=== PATIENT | female | born 1940 | race African-American/Black ===

== ENCOUNTER 2019-05-02 03:50 | Inpatient (IN) | payer MEDICARE, BC ==
[2019-05-02] VITALS (26 sets, daily range): BP systolic 62–152; BP diastolic 40–84
[~2019-05-02] VITALS: Ht 167.6 cm; Wt 59.9 kg
[~2019-05-02 03:50] MED LIST: CARV3.1242 PO
[2019-05-02] MEDS ORDERED: ETOMIDATE 2MG/ML 10ML VIAL IV ONE (03:53)
[2019-05-02] MEDS ORDERED: SUCCINYLCHOLINE CHLORIDE 200MG/10ML IV ONE (03:53)
[2019-05-02] MEDS ORDERED: SODIUM CHLORIDE 0.9% 1,000 ML IV ONE ×2 (03:59→05:00)
[2019-05-02] MEDS ORDERED: ONDANSETRON HCL 4MG/2ML INJ IV STA (03:59)
[2019-05-02] MEDS ORDERED: LORAZEPAM 2MG/ML CPJ IV ONE (04:00)
[2019-05-02] MEDS ORDERED: FENTANYL CITRATE/PF 500 MCG in SODIUM CHLORIDE 0.9% 40 ML IV PRN ×2 (04:00→10:00)
[2019-05-02] MEDS ORDERED: MIDAZOLAM HCL 50 MG in DEXTROSE 5% WATER 40 ML IV ONE (04:00)
[2019-05-02] MEDS ORDERED: MIDAZOLAM HCL 50 MG in DEXTROSE 5% WATER 40 ML IV SCH (04:30)
[2019-05-02 04:32] LABS: BG BASE EXCESS -0.9 mmol/L (-2.0-2.0); BG CARBOXYHEMOGLOBIN 0.3 % (0.5-1.5); BG DEOXYHEMOGLOBIN 2.1 % (0.0-5.0); BG FRACTION INSPIRED OXYGEN 100; BG HCO3 ACT 21.2 mmol/L (22.0-26.0); BG METHEMOGLOBIN 0.2 % (0.0-1.5); BG OXYGEN SATURATION 97.9 % (92.0-98.5); BG OXYHEMOGLOBIN 97.4 % (94.0-97.0); BG PCO2 27.8 mmHg (35.0-45.0); BG PH 7.501 (7.350-7.450); BG PO2 106.9 mmHg (75.0-100.0); BG SAMPLE SITE RIGHT RADIAL; BG TIDAL VOLUME(mL) 550 mL; BG TOTAL HEMOGLOBIN 11.5 g/dL (12.0-18.0); BG VENT MODE VENT - A/C; BG VENT RATE 14 set
[2019-05-02 04:35] LABS: CHLORIDE 118 mEq/L (98-107)
[2019-05-02 04:41] LABS: BASOPHILS % 0.2 % (0.0-2.0); EOSINOPHILS % 0.1 % (0.0-5.0); HEMATOCRIT. 36.2 % (36.0-48.0); HEMOGLOBIN. 11.6 g/dL (12.0-16.0); LYMPHOCYTES % 12.5 % (20.0-50.0); MEAN CORPUSCULAR HEMOGLOBIN 31.3 pg (28.0-32.0); MEAN CORPUSCULAR VOLUME 97.8 fL (81.0-99.0); MEAN PLATELET VOLUME 9.4 fl (7.4-10.4); MONOCYTES % 4.1 % (2.0-8.0); NEUTROPHILS % 83.1 % (40.0-76.0); PLATELET 351 x1000/uL (130-400)
[2019-05-02 04:44] LABS: INR 1.1; PROTHROMBIN TIME 12.4 sec (9.6-11.0)
[2019-05-02] MEDS ORDERED: CEFEPIME 1,000 MG in DEXTROSE 5% WATER 50 ML IV ONE (04:45)
[2019-05-02] MEDS ORDERED: VANCOMYCIN 1 G PREMIX 200 ML IV SCH (04:45)
[2019-05-02] MEDS ORDERED: SODIUM CHLORIDE 0.9% 100 ML IV ONE (05:00)
[2019-05-02 05:29] LABS: CLARITY URINE TURBID (CLEAR); COLOR URINE DARK YELLOW (YELLOW); KETONES URINE NEGATIVE (NEGATIVE); LEUKOCYTE ESTERASE URINE 3+ (NEGATIVE); NITRITE URINE POSITIVE (NEGATIVE); OCCULT BLOOD URINE 2+ (NEGATIVE); PH URINE 5.5 (4.5-8.0); PROTEIN URINE 3+ (NEGATIVE); SPECIFIC GRAVITY URINE 1.015 (1.005-1.030)
[2019-05-02] MEDS: FENTANYL CITRATE/PF 500 MCG in SODIUM CHLORIDE 0.9% 40 ML IV PRN ×2 (05:56→17:55)
[2019-05-02] MEDS ORDERED: ACETAMINOPHEN 650MG/20.3ML UDC ONE (06:51)
[2019-05-02 09:01] LABS: BASOPHILS % 0.2 % (0.0-2.0); EOSINOPHILS % 0.1 % (0.0-5.0); HEMATOCRIT. 26.9 % (36.0-48.0); HEMOGLOBIN. 8.6 g/dL (12.0-16.0); LYMPHOCYTES % 8.9 % (20.0-50.0); MEAN CORPUSCULAR HEMOGLOBIN 31.2 pg (28.0-32.0); MEAN CORPUSCULAR VOLUME 97.4 fL (81.0-99.0); MEAN PLATELET VOLUME 9.2 fl (7.4-10.4); MONOCYTES % 4.4 % (2.0-8.0); NEUTROPHILS % 86.4 % (40.0-76.0); PLATELET 228 x1000/uL (130-400); RED BLOOD CELL COUNT 2.77 mill/uL (4.2-5.4); RED CELL DISTRIBUTION WIDTH 16.8 % (11.6-14.6)
[2019-05-02 09:12] LABS: CHLORIDE 125 mEq/L (98-107)
[2019-05-02] MEDS ORDERED: MIDAZOLAM HCL 50 MG in DEXTROSE 5% WATER 40 ML IV PRN (10:00)
[2019-05-02] MEDS ORDERED: NOREPINEPHRINE 4 MG in DEXT 5% WATER 246 ML IV PRN ×2 (11:00→16:30)
[2019-05-02] MEDS ORDERED: PHENYLEPHRINE 10 MG in DEXT 5% WATER 249 ML IV PRN ×2 (11:00→16:30)
[2019-05-02] MEDS ORDERED: NOREPINEPHRINE 4MG/250ML PMX 250 ML IV PRN (11:15)
[2019-05-02] MEDS ORDERED: MEROPENEM 500 MG in SODIUM CHLORIDE 0.9% 50 ML IV SCH ×2 (11:30→18:00)
[2019-05-02] MEDS: IPRATROPIUM/ALBUTEROL 0.5-3(2.5)MG/3ML NEB HHN PRN ×2 (11:47→16:19)
[2019-05-02] MEDS ORDERED: ACETAMINOPHEN 325MG TABLET NG PRN (12:15)
[2019-05-02] MEDS ORDERED: POTASSIUM CHLORIDE 20MEQ/PACKET PO NR (17:45)
[2019-05-02] MEDS: MEROPENEM 500 MG in SODIUM CHLORIDE 0.9% 50 ML IV SCH (17:53)
[2019-05-02] MEDS: PANTOPRAZOLE SODIUM 40 MG/VIAL IV SCH (17:53)
[2019-05-02] MEDS: POTASSIUM CHLORIDE INJ 10 MEQ in DEXT 5%/0.2% NACL 1,000 ML IV SCH (19:26)
[2019-05-02] MEDS: IPRATROPIUM/ALBUTEROL 0.5-3(2.5)MG/3ML NEB HHN SCH (20:16)
[2019-05-02] MEDS: VANCOMYCIN 1 G PREMIX 200 ML IV SCH (23:13)
[2019-05-03] VITALS (97 sets, daily range): BP systolic 77–152; BP diastolic 32–75
[2019-05-03] MEDS: NOREPINEPHRINE 8 MG in DEXT 5% WATER 242 ML IV PRN ×3 (00:09→20:52)
[2019-05-03] MEDS: IPRATROPIUM/ALBUTEROL 0.5-3(2.5)MG/3ML NEB HHN SCH ×6 (00:11→21:25)
[2019-05-03] MEDS: MEROPENEM 500 MG in SODIUM CHLORIDE 0.9% 50 ML IV SCH ×3 (01:07→17:40)
[2019-05-03] MEDS: MIDAZOLAM HCL 50 MG in DEXTROSE 5% WATER 40 ML IV PRN (05:01)
[2019-05-03] MEDS: POTASSIUM CHLORIDE INJ 10 MEQ in DEXT 5%/0.2% NACL 1,000 ML IV SCH ×2 (05:01→15:20)
[2019-05-03 05:05] LABS: CHLORIDE 117 mEq/L (98-107)
[2019-05-03 06:53] LABS: BASOPHILS % 0.2 % (0.0-2.0); EOSINOPHILS % 1.7 % (0.0-5.0); HEMATOCRIT. 27.5 % (36.0-48.0); HEMOGLOBIN. 8.5 g/dL (12.0-16.0); LYMPHOCYTES % 13.5 % (20.0-50.0); MEAN CORPUSCULAR HEMOGLOBIN 30.7 pg (28.0-32.0); MEAN CORPUSCULAR VOLUME 98.6 fL (81.0-99.0); MEAN PLATELET VOLUME 10.1 fl (7.4-10.4); MONOCYTES % 4.3 % (2.0-8.0); NEUTROPHILS % 80.3 % (40.0-76.0); PLATELET 234 x1000/uL (130-400); RED BLOOD CELL COUNT 2.79 mill/uL (4.2-5.4); RED CELL DISTRIBUTION WIDTH 16.6 % (11.6-14.6)
[2019-05-03 08:34] LABS: BG BASE EXCESS 0.1 mmol/L (-2.0-2.0); BG CARBOXYHEMOGLOBIN 0.3 % (0.5-1.5); BG DEOXYHEMOGLOBIN 0.5 % (0.0-5.0); BG FRACTION INSPIRED OXYGEN 70; BG METHEMOGLOBIN 0.2 % (0.0-1.5); BG OXYGEN SATURATION 99.5 % (92.0-98.5); BG PCO2 35.7 mmHg (35.0-45.0); BG PH 7.445 (7.350-7.450); BG PO2 252.4 mmHg (75.0-100.0); BG SAMPLE SITE RIGHT RADIAL; BG TIDAL VOLUME(mL) 500 mL; BG TOTAL HEMOGLOBIN 9.6 g/dL (12.0-18.0); BG VENT MODE VENT - A/C; BG VENT RATE 12 set
[2019-05-03] MEDS: PANTOPRAZOLE SODIUM 40 MG/VIAL IV SCH (08:50)
[2019-05-03] MEDS: FENTANYL CITRATE/PF 500 MCG in SODIUM CHLORIDE 0.9% 40 ML IV PRN (15:18)
[2019-05-03] MEDS ORDERED: AMIKACIN SULFATE 500 MG in SODIUM CHLORIDE 0.9% 100 ML IV NR (17:30)
[2019-05-03] MEDS: VANCOMYCIN 1 G PREMIX 200 ML IV SCH (18:18)
[2019-05-04] VITALS (82 sets, daily range): BP systolic 75–171; BP diastolic 41–99
[2019-05-04] MEDS: IPRATROPIUM/ALBUTEROL 0.5-3(2.5)MG/3ML NEB HHN SCH ×6 (00:15→20:04)
[2019-05-04] MEDS: POTASSIUM CHLORIDE INJ 10 MEQ in DEXT 5%/0.2% NACL 1,000 ML IV SCH ×4 (00:47→22:00)
[2019-05-04] MEDS: MEROPENEM 500 MG in SODIUM CHLORIDE 0.9% 50 ML IV SCH ×3 (01:41→18:37)
[2019-05-04 05:39] LABS: BASOPHILS % 0.3 % (0.0-2.0); EOSINOPHILS % 3.3 % (0.0-5.0); HEMATOCRIT. 26.9 % (36.0-48.0); HEMOGLOBIN. 8.6 g/dL (12.0-16.0); LYMPHOCYTES % 13.9 % (20.0-50.0); MEAN CORPUSCULAR HEMOGLOBIN 31.6 pg (28.0-32.0); MEAN CORPUSCULAR VOLUME 98.6 fL (81.0-99.0); MEAN PLATELET VOLUME 10.4 fl (7.4-10.4); MONOCYTES % 4.6 % (2.0-8.0); NEUTROPHILS % 77.9 % (40.0-76.0); PLATELET 209 x1000/uL (130-400); RED BLOOD CELL COUNT 2.73 mill/uL (4.2-5.4); RED CELL DISTRIBUTION WIDTH 16.7 % (11.6-14.6)
[2019-05-04 06:17] LABS: CHLORIDE 115 mEq/L (98-107)
[2019-05-04] MEDS ORDERED: THROMBIN (BOVINE) 5000 UNITS/VIAL TOP ONE (09:00)
[2019-05-04] MEDS: PANTOPRAZOLE SODIUM 40 MG/VIAL IV SCH (09:00)
[2019-05-04 09:32] LABS: BG BASE EXCESS -1.2 mmol/L (-2.0-2.0); BG CARBOXYHEMOGLOBIN 0.3 % (0.5-1.5); BG DEOXYHEMOGLOBIN 0.9 % (0.0-5.0); BG FRACTION INSPIRED OXYGEN 40; BG HCO3 ACT 23.4 mmol/L (22.0-26.0); BG METHEMOGLOBIN 0.1 % (0.0-1.5); BG OXYGEN SATURATION 99.1 % (92.0-98.5); BG OXYHEMOGLOBIN 98.7 % (94.0-97.0); BG PCO2 38.7 mmHg (35.0-45.0); BG PO2 143.9 mmHg (75.0-100.0); BG SAMPLE SITE RIGHT RADIAL; BG TIDAL VOLUME(mL) 500 mL; BG TOTAL HEMOGLOBIN 9.4 g/dL (12.0-18.0); BG VENT MODE VENT - A/C; BG VENT RATE 12 set
[2019-05-04] MEDS: VANCOMYCIN 1 G PREMIX 200 ML IV SCH (12:20)
[2019-05-04] MEDS: NOREPINEPHRINE 8 MG in DEXT 5% WATER 242 ML IV PRN (15:45)
[2019-05-04] MEDS: FENTANYL CITRATE/PF 500 MCG in SODIUM CHLORIDE 0.9% 40 ML IV PRN (15:51)
[2019-05-04] MEDS: MIDAZOLAM HCL 50 MG in DEXTROSE 5% WATER 40 ML IV PRN (19:08)
[2019-05-05] VITALS (71 sets, daily range): BP systolic 78–130; BP diastolic 40–69
[2019-05-05] MEDS: IPRATROPIUM/ALBUTEROL 0.5-3(2.5)MG/3ML NEB HHN SCH ×6 (00:35→21:06)
[2019-05-05] MEDS: MEROPENEM 500 MG in SODIUM CHLORIDE 0.9% 50 ML IV SCH ×3 (02:45→17:41)
[2019-05-05] MEDS: POTASSIUM CHLORIDE INJ 10 MEQ in DEXT 5%/0.2% NACL 1,000 ML IV SCH ×4 (06:26→21:33)
[2019-05-05] MEDS: VANCOMYCIN 1 G PREMIX 200 ML IV SCH (06:28)
[2019-05-05 09:11] LABS: BASOPHILS % 0.2 % (0.0-2.0); EOSINOPHILS % 2.8 % (0.0-5.0); HEMATOCRIT. 27.3 % (36.0-48.0); HEMOGLOBIN. 8.8 g/dL (12.0-16.0); LYMPHOCYTES % 15.3 % (20.0-50.0); MEAN CORPUSCULAR HEMOGLOBIN 31.5 pg (28.0-32.0); MEAN CORPUSCULAR VOLUME 97.8 fL (81.0-99.0); MEAN PLATELET VOLUME 9.7 fl (7.4-10.4); MONOCYTES % 5.3 % (2.0-8.0); NEUTROPHILS % 76.4 % (40.0-76.0); PLATELET 246 x1000/uL (130-400); RED BLOOD CELL COUNT 2.79 mill/uL (4.2-5.4)
[2019-05-05 09:45] LABS: BG BASE EXCESS -1.7 mmol/L (-2.0-2.0); BG CARBOXYHEMOGLOBIN 0.3 % (0.5-1.5); BG DEOXYHEMOGLOBIN 1.5 % (0.0-5.0); BG FRACTION INSPIRED OXYGEN 35; BG HCO3 ACT 22.9 mmol/L (22.0-26.0); BG METHEMOGLOBIN 0.3 % (0.0-1.5); BG OXYGEN SATURATION 98.5 % (92.0-98.5); BG OXYHEMOGLOBIN 97.9 % (94.0-97.0); BG PCO2 38.1 mmHg (35.0-45.0); BG PH 7.397 (7.350-7.450); BG SAMPLE SITE RIGHT RADIAL; BG TIDAL VOLUME(mL) 500 mL; BG TOTAL HEMOGLOBIN 8.7 g/dL (12.0-18.0); BG VENT MODE VENT - A/C; BG VENT RATE 12 set
[2019-05-05] MEDS: PANTOPRAZOLE SODIUM 40 MG/VIAL IV SCH (09:54)
[2019-05-05 10:47] LABS: CHLORIDE 109 mEq/L (98-107)
[2019-05-05] MEDS: FENTANYL CITRATE/PF 500 MCG in SODIUM CHLORIDE 0.9% 40 ML IV PRN (10:50)
[2019-05-05] MEDS ORDERED: ACETAMINOPHEN 650MG/20.3ML UDC PO PRN (12:15)
[2019-05-05] MEDS: NOREPINEPHRINE 8 MG in DEXT 5% WATER 242 ML IV PRN (12:50)
[2019-05-05] MEDS ORDERED: HEPARIN 100 UNITS/1 ML VIAL IVF PRN (15:30)
[2019-05-05] MEDS: ACETYLCYSTEINE 100MG/ML 10% VIAL 4ML INH SCH (16:13)
[2019-05-05] MEDS: SODIUM CHLORIDE 3% FOR INH 4ML UD NEB INH SCH ×2 (19:44→21:06)
[2019-05-06] VITALS (71 sets, daily range): BP systolic 84–137; BP diastolic 42–77
[2019-05-06] MEDS: VANCOMYCIN 1 G PREMIX 200 ML IV SCH
[2019-05-06] MEDS: ACETYLCYSTEINE 100MG/ML 10% VIAL 4ML INH SCH ×3 (01:04→16:16)
[2019-05-06] MEDS: IPRATROPIUM/ALBUTEROL 0.5-3(2.5)MG/3ML NEB HHN SCH ×6 (01:04→21:07)
[2019-05-06] MEDS: MEROPENEM 500 MG in SODIUM CHLORIDE 0.9% 50 ML IV SCH ×3 (01:31→16:45)
[2019-05-06] MEDS: NOREPINEPHRINE 8 MG in DEXT 5% WATER 242 ML IV PRN ×2 (01:31→15:39)
[2019-05-06] MEDS: FENTANYL CITRATE/PF 500 MCG in SODIUM CHLORIDE 0.9% 40 ML IV PRN (01:31)
[2019-05-06] MEDS: MIDAZOLAM HCL 50 MG in DEXTROSE 5% WATER 40 ML IV PRN (05:07)
[2019-05-06] MEDS: POTASSIUM CHLORIDE INJ 10 MEQ in DEXT 5%/0.2% NACL 1,000 ML IV SCH ×2 (07:24→16:45)
[2019-05-06] MEDS: SODIUM CHLORIDE 3% FOR INH 4ML UD NEB INH SCH ×2 (08:16→13:30)
[2019-05-06] MEDS: PANTOPRAZOLE SODIUM 40 MG/VIAL IV SCH (10:17)
[2019-05-06 12:26] LABS: BASOPHILS % 0.1 % (0.0-2.0); EOSINOPHILS % 3.1 % (0.0-5.0); HEMATOCRIT. 26.3 % (36.0-48.0); HEMOGLOBIN. 8.7 g/dL (12.0-16.0); MEAN CORPUSCULAR VOLUME 97.2 fL (81.0-99.0); MEAN PLATELET VOLUME 9.7 fl (7.4-10.4); MONOCYTES % 8.8 % (2.0-8.0); PLATELET 248 x1000/uL (130-400); RED BLOOD CELL COUNT 2.71 mill/uL (4.2-5.4); RED CELL DISTRIBUTION WIDTH 16.2 % (11.6-14.6)
[2019-05-06 13:26] LABS: CHLORIDE 109 mEq/L (98-107)
[2019-05-07] VITALS (54 sets, daily range): BP systolic 67–142; BP diastolic 33–70
[2019-05-07] MEDS: ACETYLCYSTEINE 100MG/ML 10% VIAL 4ML INH SCH ×3 (00:53→16:10)
[2019-05-07] MEDS: IPRATROPIUM/ALBUTEROL 0.5-3(2.5)MG/3ML NEB HHN SCH ×6 (00:54→20:46)
[2019-05-07] MEDS: FENTANYL CITRATE/PF 500 MCG in SODIUM CHLORIDE 0.9% 40 ML IV PRN (01:04)
[2019-05-07] MEDS: MEROPENEM 500 MG in SODIUM CHLORIDE 0.9% 50 ML IV SCH ×3 (01:05→19:44)
[2019-05-07] MEDS: POTASSIUM CHLORIDE INJ 10 MEQ in DEXT 5%/0.2% NACL 1,000 ML IV SCH ×3 (01:27→19:44)
[2019-05-07 05:44] LABS: BASOPHILS % 0.2 % (0.0-2.0); EOSINOPHILS % 3.5 % (0.0-5.0); HEMATOCRIT. 24.4 % (36.0-48.0); LYMPHOCYTES % 16.7 % (20.0-50.0); MEAN CORPUSCULAR HEMOGLOBIN 31.8 pg (28.0-32.0); MEAN CORPUSCULAR VOLUME 97.3 fL (81.0-99.0); MEAN PLATELET VOLUME 10.1 fl (7.4-10.4); MONOCYTES % 9.7 % (2.0-8.0); NEUTROPHILS % 69.9 % (40.0-76.0); PLATELET 284 x1000/uL (130-400); RED BLOOD CELL COUNT 2.51 mill/uL (4.2-5.4); RED CELL DISTRIBUTION WIDTH 15.8 % (11.6-14.6)
[2019-05-07 05:59] LABS: CHLORIDE 107 mEq/L (98-107)
[2019-05-07] MEDS: NOREPINEPHRINE 8 MG in DEXT 5% WATER 242 ML IV PRN ×2 (07:04→17:59)
[2019-05-07] MEDS: ASCORBIC ACID 500 MG TABLET PO SCH (08:42)
[2019-05-07] MEDS: PANTOPRAZOLE SODIUM 40 MG/VIAL IV SCH (08:42)
[2019-05-07] MEDS: ZINC SULFATE 220 MG ( 50 ) CAPSULE PO SCH (08:43)
[2019-05-08] VITALS (75 sets, daily range): BP systolic 80–146; BP diastolic 32–128
[2019-05-08] MEDS: IPRATROPIUM/ALBUTEROL 0.5-3(2.5)MG/3ML NEB HHN SCH ×6 (01:05→21:12)
[2019-05-08] MEDS: ACETYLCYSTEINE 100MG/ML 10% VIAL 4ML INH SCH ×3 (01:06→15:51)
[2019-05-08] MEDS: MEROPENEM 500 MG in SODIUM CHLORIDE 0.9% 50 ML IV SCH ×3 (02:55→17:26)
[2019-05-08] MEDS: POTASSIUM CHLORIDE INJ 10 MEQ in DEXT 5%/0.2% NACL 1,000 ML IV SCH ×3 (04:50→21:30)
[2019-05-08] MEDS: NOREPINEPHRINE 8 MG in DEXT 5% WATER 242 ML IV PRN (06:37)
[2019-05-08 07:44] LABS: BG BASE EXCESS -2.8 mmol/L (-2.0-2.0); BG CARBOXYHEMOGLOBIN 0.3 % (0.5-1.5); BG DEOXYHEMOGLOBIN 1.3 % (0.0-5.0); BG FRACTION INSPIRED OXYGEN 30; BG HCO3 ACT 21.2 mmol/L (22.0-26.0); BG METHEMOGLOBIN 0.3 % (0.0-1.5); BG OXYGEN SATURATION 98.7 % (92.0-98.5); BG OXYHEMOGLOBIN 98.1 % (94.0-97.0); BG PH 7.425 (7.350-7.450); BG PO2 121.5 mmHg (75.0-100.0); BG SAMPLE SITE RIGHT RADIAL; BG TIDAL VOLUME(mL) 500 mL; BG TOTAL HEMOGLOBIN 7.4 g/dL (12.0-18.0); BG VENT MODE VENT - A/C; BG VENT RATE 12 set
[2019-05-08] MEDS: PANTOPRAZOLE SODIUM 40 MG/VIAL IV SCH (09:28)
[2019-05-08] MEDS: ZINC SULFATE 220 MG ( 50 ) CAPSULE PO SCH (09:28)
[2019-05-08] MEDS: ASCORBIC ACID 500 MG TABLET PO SCH (09:28)
[2019-05-08] MEDS ORDERED: LIDOCAINE HCL/PF 1% 2ML VIAL ONE (09:59)
[2019-05-08 13:38] LABS: BG BASE EXCESS 3.3 mmol/L (-2.0-2.0); BG CARBOXYHEMOGLOBIN 0.3 % (0.5-1.5); BG CPAP (cmH2O) 0 cm(H2O); BG DEOXYHEMOGLOBIN 2.3 % (0.0-5.0); BG HCO3 ACT 27.9 mmol/L (22.0-26.0); BG METHEMOGLOBIN 0.3 % (0.0-1.5); BG OXYGEN SATURATION 97.7 % (92.0-98.5); BG OXYHEMOGLOBIN 97.1 % (94.0-97.0); BG PCO2 42.5 mmHg (35.0-45.0); BG PH 7.435 (7.350-7.450); BG PO2 100.4 mmHg (75.0-100.0); BG SAMPLE SITE RIGHT RADIAL; BG TOTAL HEMOGLOBIN 8.6 g/dL (12.0-18.0); BG VENT MODE VENT - CPAP
[2019-05-09] VITALS (71 sets, daily range): BP systolic 99–144; BP diastolic 39–70
[2019-05-09] MEDS: COLISTIMETHATE SODIUM 150MG/VIAL INH SCH (00:20)
[2019-05-09] MEDS: IPRATROPIUM/ALBUTEROL 0.5-3(2.5)MG/3ML NEB HHN SCH ×6 (00:27→20:39)
[2019-05-09] MEDS: ACETYLCYSTEINE 100MG/ML 10% VIAL 4ML INH SCH ×3 (00:27→15:19)
[2019-05-09] MEDS: MEROPENEM 500 MG in SODIUM CHLORIDE 0.9% 50 ML IV SCH ×3 (01:48→17:29)
[2019-05-09 05:30] LABS: BASOPHILS % 0.3 % (0.0-2.0); EOSINOPHILS % 2.1 % (0.0-5.0); HEMATOCRIT. 22.8 % (36.0-48.0); HEMOGLOBIN. 7.4 g/dL (12.0-16.0); LYMPHOCYTES % 10.7 % (20.0-50.0); MEAN CORPUSCULAR HEMOGLOBIN 31.2 pg (28.0-32.0); MEAN CORPUSCULAR VOLUME 95.8 fL (81.0-99.0); MEAN PLATELET VOLUME 9.2 fl (7.4-10.4); MONOCYTES % 6.2 % (2.0-8.0); NEUTROPHILS % 80.7 % (40.0-76.0); PLATELET 391 x1000/uL (130-400); RED BLOOD CELL COUNT 2.38 mill/uL (4.2-5.4); RED CELL DISTRIBUTION WIDTH 15.9 % (11.6-14.6)
[2019-05-09 05:35] LABS: CHLORIDE 106 mEq/L (98-107)
[2019-05-09] MEDS: POTASSIUM CHLORIDE INJ 10 MEQ in DEXT 5%/0.2% NACL 1,000 ML IV SCH ×3 (05:40→21:59)
[2019-05-09] MEDS: ZINC SULFATE 220 MG ( 50 ) CAPSULE PO SCH (08:35)
[2019-05-09] MEDS: PANTOPRAZOLE SODIUM 40 MG/VIAL IV SCH (08:35)
[2019-05-09] MEDS: ASCORBIC ACID 500 MG TABLET PO SCH (08:35)
[2019-05-10] VITALS (42 sets, daily range): BP systolic 85–134; BP diastolic 41–80
[2019-05-10] MEDS: ACETYLCYSTEINE 100MG/ML 10% VIAL 4ML INH SCH ×2 (00:20→08:48)
[2019-05-10] MEDS: IPRATROPIUM/ALBUTEROL 0.5-3(2.5)MG/3ML NEB HHN SCH ×6 (00:35→20:19)
[2019-05-10] MEDS: POTASSIUM CHLORIDE INJ 10 MEQ in DEXT 5%/0.2% NACL 1,000 ML IV SCH ×3 (04:35→23:46)
[2019-05-10 05:50] LABS: BASOPHILS % 0.3 % (0.0-2.0); EOSINOPHILS % 3.5 % (0.0-5.0); HEMATOCRIT. 24.5 % (36.0-48.0); HEMOGLOBIN. 7.9 g/dL (12.0-16.0); MEAN CORPUSCULAR VOLUME 96.5 fL (81.0-99.0); MEAN PLATELET VOLUME 9.1 fl (7.4-10.4); MONOCYTES % 8.8 % (2.0-8.0); NEUTROPHILS % 72.4 % (40.0-76.0); PLATELET 428 x1000/uL (130-400); RED BLOOD CELL COUNT 2.54 mill/uL (4.2-5.4); RED CELL DISTRIBUTION WIDTH 15.9 % (11.6-14.6)
[2019-05-10] MEDS: ASCORBIC ACID 500 MG TABLET PO SCH (09:12)
[2019-05-10] MEDS: ZINC SULFATE 220 MG ( 50 ) CAPSULE PO SCH (09:12)
[2019-05-10] MEDS: PANTOPRAZOLE SODIUM 40 MG/VIAL IV SCH (09:18)
[2019-05-10] MEDS: COLISTIMETHATE SODIUM 150MG/VIAL INH SCH ×2 (12:23→20:20)
[2019-05-11] VITALS (42 sets, daily range): BP systolic 101–149; BP diastolic 49–86
[2019-05-11] MEDS: IPRATROPIUM/ALBUTEROL 0.5-3(2.5)MG/3ML NEB HHN SCH ×6 (00:16→20:07)
[2019-05-11 05:45] LABS: BASOPHILS % 0.5 % (0.0-2.0); EOSINOPHILS % 3.5 % (0.0-5.0); HEMATOCRIT. 22.5 % (36.0-48.0); HEMOGLOBIN. 7.4 g/dL (12.0-16.0); LYMPHOCYTES % 15.1 % (20.0-50.0); MEAN CORPUSCULAR HEMOGLOBIN 31.7 pg (28.0-32.0); MEAN CORPUSCULAR VOLUME 95.8 fL (81.0-99.0); MEAN PLATELET VOLUME 8.7 fl (7.4-10.4); MONOCYTES % 7.2 % (2.0-8.0); NEUTROPHILS % 73.7 % (40.0-76.0); PLATELET 482 x1000/uL (130-400); RED BLOOD CELL COUNT 2.35 mill/uL (4.2-5.4); RED CELL DISTRIBUTION WIDTH 16.1 % (11.6-14.6)
[2019-05-11 05:55] LABS: CHLORIDE 106 mEq/L (98-107)
[2019-05-11] MEDS: COLISTIMETHATE SODIUM 150MG/VIAL INH SCH ×2 (07:48→08:44)
[2019-05-11] MEDS: ZINC SULFATE 220 MG ( 50 ) CAPSULE PO SCH (08:24)
[2019-05-11] MEDS: PANTOPRAZOLE SODIUM 40 MG/VIAL IV SCH (08:24)
[2019-05-11] MEDS: ASCORBIC ACID 500 MG TABLET PO SCH (08:24)
[2019-05-11] MEDS: POTASSIUM CHLORIDE INJ 10 MEQ in DEXT 5%/0.2% NACL 1,000 ML IV SCH ×2 (09:23→17:21)
[2019-05-11] MEDS ORDERED: MAGNESIUM 1 G PREMIX 100 ML IV SCH (11:00)
[2019-05-11] MEDS: MEROPENEM 500 MG in SODIUM CHLORIDE 0.9% 50 ML IV SCH ×2 (12:52→17:21)
[2019-05-12] VITALS (12 sets, daily range): BP systolic 113–135; BP diastolic 36–83
[2019-05-12] MEDS: POTASSIUM CHLORIDE INJ 10 MEQ in DEXT 5%/0.2% NACL 1,000 ML IV SCH ×3 (00:06→20:48)
[2019-05-12] MEDS: MEROPENEM 500 MG in SODIUM CHLORIDE 0.9% 50 ML IV SCH ×3 (02:29→18:13)
[2019-05-12 07:07] LABS: BASOPHILS % 0.4 % (0.0-2.0); EOSINOPHILS % 5.5 % (0.0-5.0); HEMATOCRIT. 22.5 % (36.0-48.0); HEMOGLOBIN. 7.3 g/dL (12.0-16.0); MEAN CORPUSCULAR HEMOGLOBIN 30.7 pg (28.0-32.0); MEAN PLATELET VOLUME 8.3 fl (7.4-10.4); MONOCYTES % 7.5 % (2.0-8.0); NEUTROPHILS % 72.6 % (40.0-76.0); PLATELET 551 x1000/uL (130-400); RED BLOOD CELL COUNT 2.37 mill/uL (4.2-5.4); RED CELL DISTRIBUTION WIDTH 16.2 % (11.6-14.6)
[2019-05-12 07:27] LABS: CHLORIDE 106 mEq/L (98-107)
[2019-05-12] MEDS: IPRATROPIUM/ALBUTEROL 0.5-3(2.5)MG/3ML NEB HHN SCH ×4 (07:48→21:03)
[2019-05-12] MEDS: PANTOPRAZOLE SODIUM 40 MG/VIAL IV SCH (08:11)
[2019-05-12] MEDS: ASCORBIC ACID 500 MG TABLET PO SCH (08:11)
[2019-05-12] MEDS: ZINC SULFATE 220 MG ( 50 ) CAPSULE PO SCH (08:11)
[2019-05-13] VITALS (12 sets, daily range): BP systolic 105–137; BP diastolic 45–70
[2019-05-13] MEDS: IPRATROPIUM/ALBUTEROL 0.5-3(2.5)MG/3ML NEB HHN SCH ×7 (01:00→21:00)
[2019-05-13] MEDS: MEROPENEM 500 MG in SODIUM CHLORIDE 0.9% 50 ML IV SCH ×3 (01:06→17:15)
[2019-05-13] MEDS: POTASSIUM CHLORIDE INJ 10 MEQ in DEXT 5%/0.2% NACL 1,000 ML IV SCH ×4 (01:14→21:22)
[2019-05-13] MEDS: COLISTIMETHATE SODIUM 150MG/VIAL INH SCH ×2 (07:46→21:13)
[2019-05-13] MEDS: ASCORBIC ACID 500 MG TABLET PO SCH (08:54)
[2019-05-13] MEDS: PANTOPRAZOLE SODIUM 40 MG/VIAL IV SCH (08:54)
[2019-05-13] MEDS: ZINC SULFATE 220 MG ( 50 ) CAPSULE PO SCH (08:54)
[2019-05-14] VITALS (12 sets, daily range): BP systolic 95–135; BP diastolic 47–83
[2019-05-14] MEDS: IPRATROPIUM/ALBUTEROL 0.5-3(2.5)MG/3ML NEB HHN SCH ×6 (00:44→21:01)
[2019-05-14] MEDS: MEROPENEM 500 MG in SODIUM CHLORIDE 0.9% 50 ML IV SCH (01:10)
[2019-05-14] MEDS: POTASSIUM CHLORIDE INJ 10 MEQ in DEXT 5%/0.2% NACL 1,000 ML IV SCH ×4 (05:58→20:44)
[2019-05-14 07:43] LABS: BASOPHILS % 0.3 % (0.0-2.0); EOSINOPHILS % 5.5 % (0.0-5.0); HEMATOCRIT. 21.2 % (36.0-48.0); LYMPHOCYTES % 16.1 % (20.0-50.0); MEAN CORPUSCULAR HEMOGLOBIN 31.4 pg (28.0-32.0); MEAN CORPUSCULAR VOLUME 94.9 fL (81.0-99.0); MEAN PLATELET VOLUME 8.2 fl (7.4-10.4); NEUTROPHILS % 70.1 % (40.0-76.0); PLATELET 492 x1000/uL (130-400); RED BLOOD CELL COUNT 2.23 mill/uL (4.2-5.4); RED CELL DISTRIBUTION WIDTH 16.5 % (11.6-14.6)
[2019-05-14 07:48] LABS: CHLORIDE 107 mEq/L (98-107)
[2019-05-14] MEDS: COLISTIMETHATE SODIUM 150MG/VIAL INH SCH ×2 (08:44→21:01)
[2019-05-14 10:29] LABS: TOTAL IRON BINDING CAPACITY 89 ug/dL (250-450)
[2019-05-14] MEDS: ZINC SULFATE 220 MG ( 50 ) CAPSULE PO SCH (10:48)
[2019-05-14] MEDS: PANTOPRAZOLE SODIUM 40 MG/VIAL IV SCH (10:48)
[2019-05-14] MEDS: ASCORBIC ACID 500 MG TABLET PO SCH (10:48)
[2019-05-14] MEDS: IRON SUCROSE COMPLEX 100 MG/5 ML ML IV SCH (15:10)
[2019-05-15] VITALS (9 sets, daily range): BP systolic 113–129; BP diastolic 31–64
[2019-05-15] MEDS: IPRATROPIUM/ALBUTEROL 0.5-3(2.5)MG/3ML NEB HHN SCH ×6 (00:25→20:47)
[2019-05-15 06:43] LABS: HEMATOCRIT 22.4 % (36.0-48.0); HEMOGLOBIN 7.4 g/dL (12.0-16.0); MEAN CORPUSCULAR HEMOGLOBIN 31.4 pg (28.0-32.0); MEAN CORPUSCULAR VOLUME 94.8 fL (81.0-99.0); PLATELET 550 x1000/uL (130-400); RED BLOOD CELL COUNT 2.36 mill/uL (4.2-5.4); RED CELL DISTRIBUTION WIDTH 16.4 % (11.6-14.6)
[2019-05-15] MEDS: POTASSIUM CHLORIDE INJ 10 MEQ in DEXT 5%/0.2% NACL 1,000 ML IV SCH ×2 (08:21→16:52)
[2019-05-15] MEDS: ASCORBIC ACID 500 MG TABLET PO SCH (08:46)
[2019-05-15] MEDS: ZINC SULFATE 220 MG ( 50 ) CAPSULE PO SCH (08:46)
[2019-05-15] MEDS: PANTOPRAZOLE SODIUM 40 MG/VIAL IV SCH (08:46)
[2019-05-15] MEDS: COLISTIMETHATE SODIUM 150MG/VIAL INH SCH ×2 (09:34→20:59)
[2019-05-15] MEDS: IRON SUCROSE COMPLEX 100 MG/5 ML ML IV SCH (16:51)
[2019-05-16] VITALS: BP 128/50
[2019-05-16] MEDS: POTASSIUM CHLORIDE INJ 10 MEQ in DEXT 5%/0.2% NACL 1,000 ML IV SCH ×3 (00:27→17:44)
[2019-05-16] MEDS: IPRATROPIUM/ALBUTEROL 0.5-3(2.5)MG/3ML NEB HHN SCH ×6 (00:52→21:02)
[2019-05-16 04:00] VITALS: BP 113/43
[2019-05-16 08:00] VITALS: BP 113/50
[2019-05-16] MEDS: COLISTIMETHATE SODIUM 150MG/VIAL INH SCH ×2 (09:12→21:01)
[2019-05-16] MEDS: ZINC SULFATE 220 MG ( 50 ) CAPSULE PO SCH (09:23)
[2019-05-16] MEDS: PANTOPRAZOLE SODIUM 40 MG/VIAL IV SCH (09:23)
[2019-05-16] MEDS: ASCORBIC ACID 500 MG TABLET PO SCH (09:24)
[2019-05-16 12:00] VITALS: BP 116/60
[2019-05-16 16:00] VITALS: BP 126/52
[2019-05-16 20:00] VITALS: BP 118/49
[2019-05-17] VITALS: BP 115/40
[2019-05-17] MEDS: POTASSIUM CHLORIDE INJ 10 MEQ in DEXT 5%/0.2% NACL 1,000 ML IV SCH ×2 (00:02→12:54)
[2019-05-17] MEDS: IPRATROPIUM/ALBUTEROL 0.5-3(2.5)MG/3ML NEB HHN SCH ×6 (00:52→21:02)
[2019-05-17 04:00] VITALS: BP 112/44
[2019-05-17 08:00] VITALS: BP 117/66
[2019-05-17] MEDS: ASCORBIC ACID 500 MG TABLET PO SCH (09:43)
[2019-05-17] MEDS: ZINC SULFATE 220 MG ( 50 ) CAPSULE PO SCH (09:43)
[2019-05-17] MEDS: PANTOPRAZOLE SODIUM 40 MG/VIAL IV SCH (09:43)
[2019-05-17 12:07] VITALS: BP 137/52
[2019-05-17 16:00] VITALS: BP 114/69
[2019-05-17 20:00] VITALS: BP 119/64
[2019-05-18] VITALS: BP 115/53
[2019-05-18] MEDS: IPRATROPIUM/ALBUTEROL 0.5-3(2.5)MG/3ML NEB HHN SCH ×6 (00:37→22:03)
[2019-05-18 04:00] VITALS: BP 120/61
[2019-05-18 08:00] VITALS: BP 130/52
[2019-05-18] MEDS: PANTOPRAZOLE SODIUM 40 MG/VIAL IV SCH (09:09)
[2019-05-18] MEDS: ASCORBIC ACID 500 MG TABLET PO SCH (09:09)
[2019-05-18] MEDS: ZINC SULFATE 220 MG ( 50 ) CAPSULE PO SCH (09:09)
[2019-05-18] MEDS: POTASSIUM CHLORIDE INJ 10 MEQ in DEXT 5%/0.2% NACL 1,000 ML IV SCH ×2 (09:15→18:03)
[2019-05-18 12:00] VITALS: BP 120/47
[2019-05-18 16:00] VITALS: BP 115/37
[2019-05-18 20:00] VITALS: BP 124/48
[2019-05-19] VITALS: BP 118/38
[2019-05-19] MEDS: IPRATROPIUM/ALBUTEROL 0.5-3(2.5)MG/3ML NEB HHN SCH ×7 (00:59→23:36)
[2019-05-19] MEDS: POTASSIUM CHLORIDE INJ 10 MEQ in DEXT 5%/0.2% NACL 1,000 ML IV SCH ×3 (01:25→17:03)
[2019-05-19 04:00] VITALS: BP 120/54
[2019-05-19 08:00] VITALS: BP 120/49
[2019-05-19] MEDS: ASCORBIC ACID 500 MG TABLET PO SCH (08:38)
[2019-05-19] MEDS: PANTOPRAZOLE SODIUM 40 MG/VIAL IV SCH (08:38)
[2019-05-19] MEDS: ZINC SULFATE 220 MG ( 50 ) CAPSULE PO SCH (08:38)
[2019-05-19 12:00] VITALS: BP 120/62
[2019-05-19 16:00] VITALS: BP 134/65
[2019-05-19 20:00] VITALS: BP 130/68
[2019-05-20] VITALS: BP 118/55
[2019-05-20] MEDS: POTASSIUM CHLORIDE INJ 10 MEQ in DEXT 5%/0.2% NACL 1,000 ML IV SCH ×3 (01:29→16:39)
[2019-05-20] MEDS: IPRATROPIUM/ALBUTEROL 0.5-3(2.5)MG/3ML NEB HHN SCH ×5 (03:26→22:29)
[2019-05-20 04:00] VITALS: BP 124/42
[2019-05-20] MEDS: ASCORBIC ACID 500 MG TABLET PO SCH (08:56)
[2019-05-20] MEDS: PANTOPRAZOLE SODIUM 40 MG/VIAL IV SCH (08:56)
[2019-05-20] MEDS: ZINC SULFATE 220 MG ( 50 ) CAPSULE PO SCH (08:56)
[2019-05-20 20:00] VITALS: BP 151/52
[2019-05-21] VITALS: BP 136/41
[2019-05-21] MEDS: IPRATROPIUM/ALBUTEROL 0.5-3(2.5)MG/3ML NEB HHN SCH ×3 (01:44→09:55)
[2019-05-21 04:00] VITALS: BP 115/65
[2019-05-21] MEDS: POTASSIUM CHLORIDE INJ 10 MEQ in DEXT 5%/0.2% NACL 1,000 ML IV SCH (05:29)
[2019-05-21 08:00] VITALS: BP 140/62
[2019-05-21] MEDS: ZINC SULFATE 220 MG ( 50 ) CAPSULE PO SCH (09:58)
[2019-05-21] MEDS: ASCORBIC ACID 500 MG TABLET PO SCH (09:58)
[2019-05-21] MEDS: PANTOPRAZOLE SODIUM 40 MG/VIAL IV SCH (10:07)
[2019-05-21 13:05] VITALS: BP 140/62
== END 2019-05-21 13:35 | disposition home health service (06) | DRG 870 ==
LOC: ER 03:54 → MICUSO 05:20 → ENRESERV 15:38 → 3WST 05-11 21:22 → 5WST 05-15 10:21 → 6EST 05-18 18:25
PROVIDERS: ADMIT Internal Medicine; ATTEND Internal Medicine
PROC: 5A1955Z Respiratory Ventilation, Greater than 96 Consecutive Hours (ICD-10-PCS; principal; 2019-05-02)
PROC: 0BH17EZ Insertion of Endotracheal Airway into Trachea, Via Natural or Artificial Opening (ICD-10-PCS; 2019-05-02)
PROC: 02HV33Z Insertion of Infusion Device into Superior Vena Cava, Percutaneous Approach (ICD-10-PCS; 2019-05-05)
PROC: B548ZZA Ultrasonography of Superior Vena Cava, Guidance (ICD-10-PCS; 2019-05-05)
DX: A41.50 Gram-negative sepsis, unspecified (principal); L89.154 Pressure ulcer of sacral region, stage 4; J96.00 Acute respiratory failure, unspecified whether with hypoxia or hypercapnia; R65.21 Severe sepsis with septic shock; E43 Unspecified severe protein-calorie malnutrition; J69.0 Pneumonitis due to inhalation of food and vomit; N17.9 Acute kidney failure, unspecified; E87.0 Hyperosmolality and hypernatremia; E87.2 Acidosis; Z16.12 Extended spectrum beta lactamase (ESBL) resistance; R62.7 Adult failure to thrive; R47.02 Dysphasia; B96.20 Unspecified Escherichia coli [E. coli] as the cause of diseases classified elsewhere; D64.9 Anemia, unspecified; N18.9 Chronic kidney disease, unspecified; I12.9 Hypertensive chronic kidney disease with stage 1 through stage 4 chronic kidney disease, or unspecified chronic kidney disease; E11.22 Type 2 diabetes mellitus with diabetic chronic kidney disease; E86.0 Dehydration; G20 Parkinson's disease; L81.6 Other disorders of diminished melanin formation; L89.619 Pressure ulcer of right heel, unspecified stage; M19.90 Unspecified osteoarthritis, unspecified site; N30.90 Cystitis, unspecified without hematuria; R13.10 Dysphagia, unspecified; Z74.01 Bed confinement status; Z86.718 Personal history of other venous thrombosis and embolism; Z86.73 Personal history of transient ischemic attack (TIA), and cerebral infarction without residual deficits; Z88.0 Allergy status to penicillin; Z93.1 Gastrostomy status; Z88.6 Allergy status to analgesic agent; Z88.8 Allergy status to other drugs, medicaments and biological substances; Z79.899 Other long term (current) drug therapy; Z78.1 Physical restraint status; Z68.21 Body mass index [BMI] 21.0-21.9, adult
CPT/HCPCS: 36415; 36600; 71045; 76937; 80048; 80053; 80202; 81003; 82270; 82375; 82805; 83540; 83550; 83605; 83735; 83880; 84134; 84145; 84484; 85025; 85027; 85651; 86140; 87070; 87077; 87186; 87804; 93005; 93971; 94002; 94003; 94640; 94667; 96365; 97162; 99291; C1725; C9113; J0278; J0330; J0692; J0770; J2060; J2185; J2250; J2370; J2405; J3010; J3370; J3475; J3480; J3490; J7030; J7050; J7060; J7608